=== PATIENT | male | born 1985 | race African-American/Black ===

== ENCOUNTER 2018-08-05 18:38 | Emergency (ER) | payer MEDICAID ==
[~2018-08-05] VITALS: Ht 175.3 cm; Wt 80.0 kg
[~2018-08-05 18:38] MED LIST: HYDR-519 PO
[2018-08-05] MEDS ORDERED: KETOROLAC 30MG/ML VIAL IM ONE (20:15)
[2018-08-05 21:19] VITALS: BP 127/82
== END 2018-08-05 23:15 | disposition home or self-care (01) ==
LOC: ER 23:01
DX: T81.49XD Infection following a procedure, other surgical site, subsequent encounter (principal); G89.29 Other chronic pain; M54.5 Low back pain; F17.200 Nicotine dependence, unspecified, uncomplicated
CPT/HCPCS: 96372; 99283; J1885

== ENCOUNTER 2018-08-09 03:02 | Emergency (ER) | payer MEDICAID ==
[~2018-08-09] VITALS: Ht 175.3 cm; Wt 79.0 kg
[2018-08-09 03:06] VITALS: BP 103/63
== END 2018-08-09 04:15 | disposition left against medical advice (07) ==
LOC: ER 03:02
DX: Z53.21 Procedure and treatment not carried out due to patient leaving prior to being seen by health care provider (principal)

== ENCOUNTER 2018-10-21 12:32 | Emergency (ER) | payer MEDICAID ==
[~2018-10-21] VITALS: Ht 177.8 cm; Wt 84.0 kg
[2018-10-21 13:44] VITALS: BP 138/83
== END 2018-10-21 17:42 | disposition left against medical advice (07) ==
LOC: ER 12:32
DX: Z53.21 Procedure and treatment not carried out due to patient leaving prior to being seen by health care provider (principal)

== ENCOUNTER 2019-04-01 09:24 | Emergency (ER) | payer MEDICAID ==
[~2019-04-01] VITALS: Ht 177.8 cm; Wt 83.0 kg
[2019-04-01 10:24] VITALS: BP 113/69
[2019-04-01] MEDS ORDERED: KETOROLAC 60MG/2ML VIAL IM ONE (10:30)
[2019-04-01 11:27] LABS: CLARITY URINE CLEAR (CLEAR); COLOR URINE YELLOW (YELLOW); KETONES URINE NEGATIVE (NEGATIVE); LEUKOCYTE ESTERASE URINE TRACE (NEGATIVE); NITRITE URINE NEGATIVE (NEGATIVE); OCCULT BLOOD URINE NEGATIVE (NEGATIVE); PROTEIN URINE NEGATIVE (NEGATIVE); SPECIFIC GRAVITY URINE 1.011 (1.005-1.030); UROBILINOGEN URINE 0.2 E.U./dL (0.2-1.0)
== END 2019-04-01 12:26 | disposition home or self-care (01) ==
LOC: ER 09:24
DX: M54.5 Low back pain (principal); G89.29 Other chronic pain
CPT/HCPCS: 72100; 81003; 96372; 99284; J1885

== ENCOUNTER 2020-01-04 08:23 | Emergency (ER) | payer MEDICAID ==
[~2020-01-04] VITALS: Ht 177.8 cm; Wt 84.0 kg
[2020-01-04] MEDS ORDERED: IBUPROFEN 600MG TABLET PO ONE (08:45)
[2020-01-04 08:53] VITALS: BP 143/75
[2020-01-04] MEDS ORDERED: LIDOCAINE HCL/PF 1% 10 MG/ML 5ML VIAL INL NR (09:45)
== END 2020-01-04 10:49 | disposition home or self-care (01) ==
LOC: ER 08:23
DX: M79.641 Pain in right hand (principal)
CPT/HCPCS: 26770; 73110; 73130; 99284; J3490; 29125

== ENCOUNTER 2020-01-22 01:00 | Emergency (ER) | payer MEDICAID ==
[~2020-01-22] VITALS: Ht 177.8 cm; Wt 84.0 kg
[2020-01-22] MEDS ORDERED: IBUPROFEN 600MG TABLET PO ONE (02:15)
[2020-01-22] MEDS ORDERED: CEFTRIAXONE SODIUM 250 MG/VIAL IM ONE (03:15)
[2020-01-22] MEDS ORDERED: AZITHROMYCIN 500 MG TABLET PO ONE (03:15)
[2020-01-22] MEDS ORDERED: LIDOCAINE HCL 1% 20ML VIAL (Pyxis) INJ INFIL ONE (03:45)
[2020-01-22 04:07] VITALS: BP 133/68
[2020-01-24 04:10] LABS: NEISSERIA GONORRHOEAE NAA Positive (Negative)
== END 2020-01-22 04:10 | disposition home or self-care (01) ==
LOC: ER 01:00
DX: S86.891A Other injury of other muscle(s) and tendon(s) at lower leg level, right leg, initial encounter (principal); A64 Unspecified sexually transmitted disease; F12.10 Cannabis abuse, uncomplicated; Y04.0XXA Assault by unarmed brawl or fight, initial encounter; Y93.89 Activity, other specified; Y92.89 Other specified places as the place of occurrence of the external cause; Y99.8 Other external cause status
CPT/HCPCS: 29125; 73110; 73130; 87491; 87591; 96372; 99284; J0696; J3490

== ENCOUNTER 2020-06-04 16:13 | Emergency (ER) | payer MEDICAID ==
[~2020-06-04] VITALS: Ht 177.8 cm; Wt 80.0 kg
[2020-06-04] MEDS ORDERED: KETOROLAC 60MG/2ML VIAL IM ONE (17:45)
[2020-06-04] MEDS ORDERED: IBUP-2028 MT (18:22)
[2020-06-04 18:35] VITALS: BP 113/73
== END 2020-06-04 18:37 | disposition home or self-care (01) ==
LOC: ER 16:13
DX: S46.812A Strain of other muscles, fascia and tendons at shoulder and upper arm level, left arm, initial encounter (principal); M54.89 Other dorsalgia; X58.XXXA Exposure to other specified factors, initial encounter; Y93.89 Activity, other specified; Y92.69 Other specified industrial and construction area as the place of occurrence of the external cause; Y99.0 Civilian activity done for income or pay; F12.90 Cannabis use, unspecified, uncomplicated
CPT/HCPCS: 73030; 96372; 99283; J1885

== ENCOUNTER 2020-07-23 02:59 | Emergency (ER) | payer MEDICAID ==
[~2020-07-23] VITALS: Ht 177.8 cm; Wt 86.0 kg
[~2020-07-23 02:59] MED LIST changes: +IBUP-2028 MT
[2020-07-23 03:08] VITALS: BP 115/58
[2020-07-23 03:55] LABS: CLARITY URINE CLEAR (CLEAR); COLOR URINE DARK YELLOW (YELLOW); KETONES URINE TRACE (NEGATIVE); LEUKOCYTE ESTERASE URINE 2+ (NEGATIVE); NITRITE URINE NEGATIVE (NEGATIVE); OCCULT BLOOD URINE NEGATIVE (NEGATIVE); PH URINE 5.5 (4.5-8.0); PROTEIN URINE NEGATIVE (NEGATIVE); SPECIFIC GRAVITY URINE 1.036 (1.005-1.030)
[2020-07-23] MEDS ORDERED: DOXY100C2 MT (04:18)
[2020-07-23] MEDS ORDERED: DOXYCYCLINE HYCLATE 100MG CAPSULE PO ONE (04:30)
[2020-07-23] MEDS ORDERED: CEFTRIAXONE SODIUM 500 MG/VIAL IM ONE (04:30)
[2020-07-23] MEDS ORDERED: LIDOCAINE HCL 1% 20ML VIAL (Pyxis) INJ INFIL ONE (04:30)
== END 2020-07-23 05:21 | disposition home or self-care (01) ==
LOC: ER 02:59
DX: R30.0 Dysuria (principal); Z20.2 Contact with and (suspected) exposure to infections with a predominantly sexual mode of transmission; F12.10 Cannabis abuse, uncomplicated; Z79.899 Other long term (current) drug therapy
CPT/HCPCS: 81003; 87086; 87491; 87591; 96372; 99283; J0696; J3490

== ENCOUNTER 2021-06-28 20:04 | Emergency (ER) | payer MEDICAID ==
[~2021-06-28] VITALS: Ht 177.8 cm; Wt 83.3 kg
[~2021-06-28 20:04] MED LIST changes: +DOXY100C5 MT
[2021-06-28] MEDS ORDERED: HYDROCODONE/ACETAMINOPHEN 5/325MG TABLET PO ONE (22:15)
[2021-06-29] MEDS ORDERED: HYDROCODONE/ACETAMINOPHEN 5/325MG TABLET PO SCH (02:00)
[2021-06-29 02:08] VITALS: BP 105/63
== END 2021-06-29 02:29 | disposition home or self-care (01) ==
LOC: ER 20:04
DX: S00.81XA Abrasion of other part of head, initial encounter (principal); M25.511 Pain in right shoulder; M25.531 Pain in right wrist; M25.551 Pain in right hip; W20.8XXA Other cause of strike by thrown, projected or falling object, initial encounter; Y93.19 Activity, other involving water and watercraft; Y92.832 Beach as the place of occurrence of the external cause
CPT/HCPCS: 72170; 73030; 73110; 99284

== ENCOUNTER 2021-07-27 02:30 | Emergency (ER) | payer MEDICAID ==
[~2021-07-27] VITALS: Ht 177.8 cm; Wt 84.5 kg
[2021-07-27 02:55] VITALS: BP 112/69
[2021-07-27] MEDS ORDERED: AZITHROMYCIN 500 MG TABLET PO ONE (04:15)
[2021-07-27] MEDS ORDERED: CEFTRIAXONE SODIUM 500 MG/VIAL IM ONE (04:15)
[2021-07-30 04:11] LABS: NEISSERIA GONORRHOEAE NAA Negative (Negative)
== END 2021-07-27 04:49 | disposition home or self-care (01) ==
LOC: ER 02:30
DX: Z20.2 Contact with and (suspected) exposure to infections with a predominantly sexual mode of transmission (principal)
CPT/HCPCS: 87491; 87591; 96372; 99283; J0696

== ENCOUNTER 2021-08-18 23:36 | Emergency (ER) | payer MEDICAID ==
[~2021-08-18] VITALS: Ht 177.8 cm; Wt 79.0 kg
[2021-08-18 23:56] VITALS: BP 114/67
== END 2021-08-19 00:30 | disposition left against medical advice (07) ==
LOC: ER 23:36
DX: Z53.21 Procedure and treatment not carried out due to patient leaving prior to being seen by health care provider (principal)

== ENCOUNTER 2021-08-24 02:57 | Emergency (ER) | payer MEDICAID, OTHER ==
[~2021-08-24] VITALS: Ht 177.8 cm; Wt 82.0 kg
[2021-08-24] MEDS ORDERED: HYDROCODONE/ACETAMINOPHEN 5/325MG TABLET PO ONE (06:00)
[2021-08-24] MEDS ORDERED: IBUPROFEN 400MG TABLET PO ONE (06:00)
[2021-08-24 06:04] VITALS: BP 144/80
[2021-08-24] MEDS ORDERED: IBUP-2028 MT (07:10)
== END 2021-08-24 07:17 | disposition home or self-care (01) ==
LOC: ER 02:57
DX: S46.092A Other injury of muscle(s) and tendon(s) of the rotator cuff of left shoulder, initial encounter (principal); X58.XXXA Exposure to other specified factors, initial encounter; Y93.89 Activity, other specified; Y92.89 Other specified places as the place of occurrence of the external cause; Y99.8 Other external cause status; F12.10 Cannabis abuse, uncomplicated; M54.30 Sciatica, unspecified side; Z79.899 Other long term (current) drug therapy
CPT/HCPCS: 73030; 99283

== ENCOUNTER 2021-09-30 05:34 | Emergency (ER) | payer MEDICAID, OTHER ==
[~2021-09-30] VITALS: Ht 177.8 cm; Wt 82.0 kg
[2021-09-30 06:04] VITALS: BP 135/81
== END 2021-09-30 07:30 | disposition home or self-care (01) ==
LOC: ER 05:34
DX: B04 Monkeypox (principal); R03.0 Elevated blood-pressure reading, without diagnosis of hypertension
CPT/HCPCS: 99281

== ENCOUNTER 2021-10-03 15:42 | Emergency (ER) | payer MEDICAID ==
[~2021-10-03] VITALS: Ht 177.8 cm; Wt 82.0 kg
[2021-10-03 16:11] VITALS: BP 125/80
== END 2021-10-03 20:20 | disposition left against medical advice (07) ==
LOC: ER 15:42
DX: Z53.21 Procedure and treatment not carried out due to patient leaving prior to being seen by health care provider (principal)

== ENCOUNTER 2021-10-05 20:55 | Emergency (ER) | payer MEDICAID, OTHER ==
[~2021-10-05] VITALS: Ht 177.8 cm; Wt 90.0 kg
[2021-10-05] MEDS ORDERED: PENICILLIN G BENZATHINE 2,400,000 UNITS/4ML SYR IM ONE (21:15)
[2021-10-05 22:30] VITALS: BP 133/67
== END 2021-10-05 22:30 | disposition home or self-care (01) ==
LOC: ER 20:55
DX: A53.9 Syphilis, unspecified (principal)
CPT/HCPCS: 96372; 99283; J0561

== ENCOUNTER 2021-10-11 23:51 | Emergency (ER) | payer MEDICAID, OTHER ==
[~2021-10-11] VITALS: Ht 177.8 cm; Wt 80.9 kg
[2021-10-12] MEDS ORDERED: PENICILLIN G BENZATHINE 2,400,000 UNITS/4ML SYR IM ONE (01:00)
[2021-10-12 01:55] VITALS: BP 116/74
== END 2021-10-12 01:57 | disposition home or self-care (01) ==
LOC: ER 23:51
DX: A53.9 Syphilis, unspecified (principal); Z86.19 Personal history of other infectious and parasitic diseases
CPT/HCPCS: 96372; 99283; J0561

== ENCOUNTER 2021-10-19 01:02 | Emergency (ER) | payer MEDICAID ==
[~2021-10-19] VITALS: Ht 177.8 cm; Wt 80.9 kg
[2021-10-19] MEDS ORDERED: PENICILLIN G BENZATHINE 2,400,000 UNITS/4ML SYR IM ONE (02:00)
[2021-10-19 02:21] VITALS: BP 106/77
== END 2021-10-19 02:54 | disposition home or self-care (01) ==
LOC: ER 01:02
DX: A53.9 Syphilis, unspecified (principal)
CPT/HCPCS: 96372; 99283; J0561

== ENCOUNTER 2021-10-24 04:29 | Emergency (ER) | payer MEDICAID ==
[~2021-10-24] VITALS: Ht 157.5 cm; Wt 81.0 kg
[2021-10-24 04:40] VITALS: BP 132/83
== END 2021-10-24 05:10 | disposition left against medical advice (07) ==
LOC: ER 04:29
DX: Z53.21 Procedure and treatment not carried out due to patient leaving prior to being seen by health care provider (principal)

== ENCOUNTER 2021-11-15 07:25 | Emergency (ER) | payer MEDICAID ==
[~2021-11-15] VITALS: Ht 177.8 cm; Wt 84.0 kg
[2021-11-15] MEDS ORDERED: ACETAMINOPHEN WITH CODEINE 300/30MG TABLET PO ONE (07:45)
[2021-11-15 08:05] VITALS: BP 117/79
[2021-11-15] MEDS ORDERED: TOPUD PO (08:36)
== END 2021-11-15 08:57 | disposition home or self-care (01) ==
LOC: ER 07:51
DX: M25.512 Pain in left shoulder (principal)
CPT/HCPCS: 73030; 99283

== ENCOUNTER 2021-11-29 00:12 | Emergency (ER) | payer MEDICAID ==
[~2021-11-29] VITALS: Ht 177.8 cm; Wt 82.6 kg
[~2021-11-29 00:12] MED LIST changes: +TOPUD PO
[2021-11-29 00:32] VITALS: BP 140/63
== END 2021-11-29 06:07 | disposition left against medical advice (07) ==
LOC: ER 00:12
DX: Z53.21 Procedure and treatment not carried out due to patient leaving prior to being seen by health care provider (principal)

== ENCOUNTER 2023-01-20 04:53 | Emergency (ER) | payer MEDICAID, OTHER ==
[~2023-01-20] VITALS: Ht 177.8 cm; Wt 84.0 kg
[2023-01-20] MEDS ORDERED: ACETAMINOPHEN 325MG TABLET PO STA (05:17)
[2023-01-20] MEDS ORDERED: SODIUM CHLORIDE 0.9% 1,000 ML IV ONE (05:30)
[2023-01-20 05:57] VITALS: O2SAT 99
[2023-01-20] MEDS ORDERED: CEFTRIAXONE SODIUM 500 MG/VIAL IM ONE (06:45)
[2023-01-20] MEDS ORDERED: DOXY100C5 MT (06:48)
[2023-01-20 07:17] VITALS: BP 114/63; PULSE 64; RESP 14; TEMP 98.6
== END 2023-01-20 07:20 | disposition home or self-care (01) ==
LOC: ER 04:53
DX: Z20.2 Contact with and (suspected) exposure to infections with a predominantly sexual mode of transmission (principal); F12.90 Cannabis use, unspecified, uncomplicated; N34.2 Other urethritis
CPT/HCPCS: 99284; 71045; 87040; 87804 ×2; 96372; J0696; J7030

== ENCOUNTER 2023-04-17 11:33 | Emergency (ER) | payer MEDICAID, OTHER ==
[~2023-04-17] VITALS: Ht 175.3 cm; Wt 80.0 kg
[2023-04-17] MEDS: KETOROLAC 60MG/2ML VIAL IM ONE (12:35)
[2023-04-17] MEDS: DIAZEPAM 5 MG TABLET PO ONE (12:35)
[2023-04-17] MEDS: DEXAMETHASONE 10 MG/ML VIAL PO ONE (12:36)
[2023-04-17] MEDS: ONDANSETRON 4MG ODT PO ONE (12:37)
[2023-04-17 13:09] LABS: CLARITY URINE CLEAR (CLEAR); COLOR URINE YELLOW (YELLOW); GLUCOSE URINE NEGATIVE (NEGATIVE); KETONES URINE NEGATIVE (NEGATIVE); LEUKOCYTE ESTERASE URINE NEGATIVE (NEGATIVE); NITRITE URINE NEGATIVE (NEGATIVE); OCCULT BLOOD URINE NEGATIVE (NEGATIVE); PH URINE 5.5 (4.5-8.0); PROTEIN URINE NEGATIVE (NEGATIVE); SPECIFIC GRAVITY URINE 1.021 (1.005-1.030); UROBILINOGEN URINE 0.2 E.U./dL (0.2-1.0)
[2023-04-17] MEDS ORDERED: CYCL10TA21 MT (15:11)
[2023-04-17 15:14] VITALS: BP 105/63; PULSE 93; RESP 18; TEMP 98.8
== END 2023-04-17 15:27 | disposition home or self-care (01) ==
LOC: ER 11:44
DX: M54.50 Low back pain, unspecified (principal); F14.10 Cocaine abuse, uncomplicated; F12.10 Cannabis abuse, uncomplicated
CPT/HCPCS: 99284; 81003; 96372; Q0162; J1100; J1885

== ENCOUNTER 2023-12-18 11:20 | Emergency (ER) | payer MEDICAID ==
[~2023-12-18] VITALS: Ht 175.3 cm; Wt 75.0 kg
[~2023-12-18 11:20] MED LIST changes: +CYCL10TA21 MT
[2023-12-18 11:26] VITALS: O2SAT 99
[2023-12-18 11:31] VITALS: TEMP 98; O2SAT 98
[2023-12-18] MEDS ORDERED: DICYCLOMINE 10 MG/5 ML ORAL SYR PO STA (11:33)
[2023-12-18 11:54] VITALS: BP 130/78; PULSE 78; RESP 16
[2023-12-18] MEDS: KETOROLAC 30MG/ML VIAL IM STA (11:54)
[2023-12-18] MEDS: ONDANSETRON 4MG ODT PO STA (11:55)
[2023-12-18] MEDS: MAGNESIUM/ALUMINUM HYDROXIDE/SIMETHICONE 30ML UDC PO STA (11:55)
[2023-12-18 12:23] LABS: CHLORIDE 109 mEq/L (98-107); SODIUM 141 mEq/L (136-145)
[2023-12-18 12:25] LABS: CARBON DIOXIDE 26 mEq/L (21-32)
[2023-12-18 12:26] LABS: CALCIUM 9.8 mg/dL (8.7-10.4)
[2023-12-18] MEDS: DICYCLOMINE HCL 10MG CAPSULE PO SCH (12:28)
[2023-12-18] MEDS: SODIUM CHLORIDE 0.9% 1,000 ML IV ONE (12:28)
[2023-12-18 12:30] LABS: CREATININE 1.1 mg/dL (0.6-1.3); GLUCOSE 83 mg/dL (70-105)
[2023-12-18 12:31] LABS: UREA NITROGEN BLOOD 10 mg/dL (9-23)
[2023-12-18 12:32] LABS: ALANINE AMINOTRANSFERASE 11 IU/L (10-49); ALBUMIN 4.7 g/dL (3.2-4.8); ASPARTATE AMINOTRANSFERASE 18 IU/L (<34)
[2023-12-18 12:33] LABS: BILIRUBIN DIRECT 0.2 mg/dL (<=3.0); BILIRUBIN TOTAL 0.7 mg/dL (0.1-1.0); PROTEIN TOTAL 7.5 g/dL (6.0-8.3)
[2023-12-18 12:40] LABS: BASOPHILS % 0.4 % (0.0-2.0); EOSINOPHILS % 1.5 % (0.0-5.0); HEMATOCRIT. 43.9 % (42.0-52.0); HEMOGLOBIN. 14.9 g/dL (14.0-18.0); LYMPHOCYTES % 22.1 % (20.0-50.0); MEAN CORPUSCULAR HEMOGLOBIN 31.2 pg (28.0-32.0); MEAN CORPUSCULAR VOLUME 91.8 fL (80.0-94.0); MEAN PLATELET VOLUME 8.8 fl (7.4-10.4); PLATELET 193 x1000/uL (130-400); RED BLOOD CELL COUNT 4.78 mill/uL (4.7-6.1); RED CELL DISTRIBUTION WIDTH 14.1 % (11.6-14.6); WHITE BLOOD COUNT 5.6 x1000/uL (4.5-11.0)
== END 2023-12-18 17:29 | disposition home or self-care (01) ==
LOC: ER 11:20
DX: K52.9 Noninfective gastroenteritis and colitis, unspecified (principal); F14.10 Cocaine abuse, uncomplicated; F12.10 Cannabis abuse, uncomplicated; Z79.899 Other long term (current) drug therapy
CPT/HCPCS: 80076; 80048; 83690; 85025; 36415; 96360; 96361; 96372; 99284; Q0162; J1885; J7030; Z7610

== ENCOUNTER 2024-07-08 10:20 | Emergency (ER) | payer MEDICAID ==
[~2024-07-08] VITALS: Ht 177.8 cm; Wt 81.6 kg
[2024-07-08 10:22] VITALS: O2SAT 98
[2024-07-08 10:30] VITALS: BP 124/77; PULSE 77; RESP 16; TEMP 36.8; O2SAT 100
[2024-07-08 11:36] LABS: CLARITY URINE CLEAR (CLEAR); COLOR URINE YELLOW (YELLOW); GLUCOSE URINE NEGATIVE (NEGATIVE); KETONES URINE TRACE (NEGATIVE); LEUKOCYTE ESTERASE URINE NEGATIVE (NEGATIVE); NITRITE URINE NEGATIVE (NEGATIVE); OCCULT BLOOD URINE NEGATIVE (NEGATIVE); PROTEIN URINE NEGATIVE (NEGATIVE); SPECIFIC GRAVITY URINE 1.021 (1.005-1.030)
[2024-07-08] MEDS ORDERED: IBUP-2028 MT (21:10)
== END 2024-07-08 12:01 | disposition home or self-care (01) ==
LOC: ER 10:20
DX: Z11.3 Encounter for screening for infections with a predominantly sexual mode of transmission (principal); F14.90 Cocaine use, unspecified, uncomplicated; F12.90 Cannabis use, unspecified, uncomplicated
CPT/HCPCS: 81003; 99283

== ENCOUNTER 2024-07-08 18:10 | Emergency (ER) | payer MEDICAID ==
[~2024-07-08] VITALS: Ht 170.2 cm; Wt 77.1 kg
[2024-07-08 18:13] VITALS: O2SAT 100
[2024-07-08 18:19] VITALS: BP 124/91; PULSE 104; RESP 14; TEMP 36.8; O2SAT 98
[2024-07-08 18:49] LABS: BASOPHILS % 0.9 % (0.0-2.0); EOSINOPHILS % 1.2 % (0.0-5.0); HEMATOCRIT. 46.6 % (42.0-52.0); HEMOGLOBIN. 15.6 g/dL (14.0-18.0); LYMPHOCYTES % 28.9 % (20.0-50.0); MEAN CORPUSCULAR HEMOGLOBIN 30.5 pg (28.0-32.0); MEAN CORPUSCULAR HGB CONC 33.5 g/dL (31.0-37.0); MEAN CORPUSCULAR VOLUME 91.2 fL (80.0-94.0); MEAN PLATELET VOLUME 8.7 fl (7.4-10.4); MONOCYTES % 10.7 % (2.0-8.0); NEUTROPHILS % 58.3 % (40.0-76.0); PLATELET 202 x1000/uL (130-400); RED BLOOD CELL COUNT 5.12 mill/uL (4.7-6.1); RED CELL DISTRIBUTION WIDTH 14.3 % (11.6-14.6); WHITE BLOOD COUNT 4.8 x1000/uL (4.5-11.0)
[2024-07-08 18:51] LABS: CHLORIDE 106 mEq/L (98-107); POTASSIUM 3.9 mEq/L (3.5-5.1); SODIUM 142 mEq/L (136-145)
[2024-07-08 18:52] LABS: CARBON DIOXIDE 29 mEq/L (21-32)
[2024-07-08 18:53] LABS: CALCIUM 9.2 mg/dL (8.7-10.4)
[2024-07-08] MEDS: SODIUM CHLORIDE 0.9% 1,000 ML IV ONE (18:54)
[2024-07-08] MEDS: METOCLOPRAMIDE HCL 10MG/2ML VIAL IV ONE (18:54)
[2024-07-08 18:57] LABS: CREATININE 1.3 mg/dL (0.6-1.3); GLUCOSE 102 mg/dL (70-105); UREA NITROGEN BLOOD 10 mg/dL (9-23)
[2024-07-08] MEDS ORDERED: IBUP-2028 MT (21:10)
== END 2024-07-08 21:16 | disposition home or self-care (01) ==
LOC: ER 18:10
DX: G43.909 Migraine, unspecified, not intractable, without status migrainosus (principal); F12.90 Cannabis use, unspecified, uncomplicated; F14.90 Cocaine use, unspecified, uncomplicated; Z59.00 Homelessness unspecified
CPT/HCPCS: 80048; 85025; 36415; 70496; 70498; 96361; 96374; 99285; Q9967; J2765; J7030; Z7610

== ENCOUNTER 2024-07-25 01:08 | Emergency (ER) | payer MEDICAID ==
[~2024-07-25] VITALS: Ht 177.8 cm; Wt 83.0 kg
[2024-07-25 01:22] VITALS: O2SAT 100
[2024-07-25] MEDS: ACETAMINOPHEN 500MG TABLET PO ONE (02:54)
[2024-07-25] MEDS ORDERED: IBUP-2029 MT (02:56)
[2024-07-25 03:43] VITALS: BP 127/85; PULSE 73; RESP 18; TEMP 37.1; O2SAT 100
== END 2024-07-25 03:45 | disposition home or self-care (01) ==
LOC: ER 01:08
DX: S00.83XA Contusion of other part of head, initial encounter (principal); S09.90XA Unspecified injury of head, initial encounter; F14.90 Cocaine use, unspecified, uncomplicated; F12.90 Cannabis use, unspecified, uncomplicated; Z79.899 Other long term (current) drug therapy; V89.9XXA Person injured in unspecified vehicle accident, initial encounter; Y93.89 Activity, other specified; Y92.89 Other specified places as the place of occurrence of the external cause; Y99.8 Other external cause status
CPT/HCPCS: 70486; 99284